=== PATIENT | male | born 1970 | race Asian ===

== ENCOUNTER → 2018-04-25 12:56 | Outpatient (CLI) | payer OTHER, SELFPAY ==
--- NOTE | 2018-04-25 | DI.CT.S_ITS ---
PROCEDURE: CT KIDNEY URETER BLADDER (KUB) INDICATIONS: HYDRONEPHROSIS TECHNIQUE: Noncontrast 5 mm thick sections acquired from the diaphragms to the symphysis. 5 mm thick coronal and sagittal reformats were then performed. For radiation dose reduction, the following was used: automated exposure control, adjustment of mA and/or kV according to patient size. COMPARISON: None. FINDINGS: Image quality: Diagnostic. Lung bases: A small calcified granuloma is identified in the lateral right lung base. Heart size is normal. Urinary system: Both kidneys are normal in size. No kidney stones. No hydronephrosis or perinephric fat stranding. Both ureters appear non-dilated throughout their expected courses. Bladder wall thickness is normal; no calcified bladder stones. Other solid organs: Liver is normal in size. Gallbladder is not enlarged or inflamed. Pancreas is normal in contours. Spleen is normal in size. No adrenal nodules. Peritoneum and bowel: There may be a small hiatal hernia. Otherwise, stomach and duodenum are unremarkable. No significant small bowel dilatation is evident. The appendix is well-visualized and normal. Moderate residual stool is seen within the proximal colon. There is no free fluid, loculated fluid collection or free air. Nodes and vessels: No retroperitoneal or mesenteric adenopathy by size criteria. Aorta and inferior vena cava are normal in caliber. Abdominal wall: No ventral hernias. Other pelvic soft tissues: No free pelvic fluid. No inguinal hernias or adenopathy. No loculated fluid collections are evident. Bones: No suspicious bony lesions. No vertebral body compression fractures. Age-appropriate degenerative changes of the imaged spine and pelvic joints are present. IMPRESSION: 1. No obstructing or nonobstructing renal or ureteral calculi. No hydronephrosis. 2. Normal appendix. 3. Possible proximal colonic constipation. 4. Possible small hiatal hernia. Dictated by: Luis Mai M.D. on 04/25/2018 at 12:56 Approved by: Luis Mai M.D. on 04/25/2018 at 12:59
== END ==
PROVIDERS: Visit Provider Urology
DX: N13.30 Unspecified hydronephrosis (principal)
CPT/HCPCS: 74176